=== PATIENT | male | born 1990 | race Two or more races ===

== ENCOUNTER 2017-01-22 08:37 | Emergency (ER) | payer SELFPAY ==
[2017-01-22] VITALS (12 sets, daily range): BP systolic 100–112; BP diastolic 60–83
[~2017-01-22] VITALS: Ht 162.6 cm; Wt 56.7 kg
[2017-01-22] MEDS ORDERED: Ketorolac 30mg Inj IV ONE (09:15)
[2017-01-22] MEDS ORDERED: Diazepam 10mg/2ml Inj IV ONE (09:15)
[2017-01-22] MEDS ORDERED: Lidocaine 1% Plain 30 ml INJ ONE ×2 (09:29→09:30)
--- NOTE | 2017-01-22 09:35 | Diagnostic Imaging Report ---
Indication: Right shoulder pain Technique: XRAY SHOULDER MIN 3V RIGHT Comparison: None Findings: There is the right anterior shoulder dislocation with suspected Hill-Sachs impaction of the humeral head. Bone mineralization is normal. Impression: Right anterior shoulder dislocation.
[2017-01-22] MEDS ORDERED: Propofol 10mg/ml 20ml IV ONE (10:00)
[2017-01-22] MEDS ORDERED: ACETAMINOPHEN-1 EAC1 ORAL (12:30)
[2017-01-22] MEDS ORDERED: IBUPROFEN600 MG ORAL (12:30)
--- NOTE | 2017-01-22 15:15 | Emergency Room Report ---
History of Present Illness General Chief Complaint: Upper Extremity Injury Source: Patient Present Illness HPI 26-year-old male presents ED complain of right shoulder pain. States he slipped and fell the bathroom this morning. The nose right shoulder. Denies hitting his head or LOC. Notes pain and deformity to right shoulder. /. Throbbing. Nonradiating. Unable to raise shoulder. History of dislocations in the past. No other aggravating or relieving factors. Denies any other associated symptoms Allergies: Coded Allergies: No Known Allergies (Unverified , 01/22/17) Patient History Past Medical History: none Past Surgical History: none Pertinent Family History: none Social History: Denies: alcohol use, drug use, smoking Immunizations: UTD Reviewed Nursing Documentation: PMH: Agreed, PSxH: Agreed Nursing Documentation-PMH Past Medical History: No Stated History Review of Systems All Other Systems: negative except mentioned in HPI Physical Exam Vital Signs Date Time Temp Pulse Resp B/P Pulse Ox O2 Delivery O2 Flow Rate FiO2 01/22/17 08:51 98.2 96 16 103/71 100 Room Air 01/22/17 09:35 3.0 Sp02 EP Interpretation: reviewed, normal General Appearance: no apparent distress, alert, GCS 15, non-toxic Head: normocephalic Eyes: bilateral eye PERRL, bilateral eye normal inspection ENT: normal ENT inspection Neck: normal inspection Respiratory: normal inspection Cardiovascular #1: normal inspection Gastrointestinal: normal inspection Rectal: deferred Genitourinary: no CVA tenderness Musculoskeletal: other - deformity R shoulder Neurologic: alert, oriented x3, responsive, motor strength/tone normal, sensory intact, speech normal Psychiatric: normal inspection Skin: normal inspection Lymphatic: normal inspection Procedures Splinting Splinting : Consent: Verbal Splint: shoulder immobilizer Pre-Proc Neuro Vasc Exam: normal Post-Proc Neuro Vasc Exam: normal Patient Tolerated: Well Complications: None Joint Reduction Joint Reduction : Consent: Verbal Joint Reduction Site: shoulder (R) Procedural Sedation: Yes Reduction Attempts: One Pre-Procedure NV Exam: Yes Post-Procedure NV Exam: Yes Post Joint Reduction Film: joint reduced Patient Tolerated: Well Complications: None Procedural Sedation Consent: Written Pre-Sedation Assessment: Eval. Immed. Prior to Sed, Pre-proc Edu. done, Plan for Sedation Discuss Airway Assessment (Malampati): I Heart: normal Lungs: normal Abdomen: normal Extremities: normal Procedures/Plans: Closed Reduction Plan for Moderate Sedation: Propofol ASA Score: I Start Time: 10:32 End Time: 10:41 Total Time: 0009 Communication: No Apparent Limitation Mental Status: Awake Respiration: Unlabored Skin Condition: WNL Abdomen: WNL Nausea: NO Vomiting: NO Medical Decision Making Diagnostic Impression: Primary Impression: Shoulder dislocation Qualified Codes: S43.004A - Unspecified dislocation of right shoulder joint, initial encounter ER Course Hospital Course 26-year-old male presents to ED complaining of R shoulder pain Differential diagnoses include: Fracture, dislocation, sprain, contusion Clinical course Patient placed on stretcher. After initial history and physical I ordered pain medications and x-rays of right shoulder Right shoulder x-ray shows dislocation Procedural sedation performed using propofol. Respiratory therapist at bedside. Patient stable vitals on cardiac rn. Shoulder reduced without complication. Placed in shoulder sling. Repeat shoulder x-ray shows adequate reduction. Patient states she feels better. Diagnosis - shoulder dislocation Stable and discharged to home with prescription for Motrin, Tylenol #3. Followup with PMD. Return to ED if symptoms recur or worsen Other X-Ray Diagnostic Results Other X-Ray Diagnostic Results : X-Ray Ordered: R shoulder EP Interpretation: No Findings: no fractures, no soft tissue swelling, other - R shoulder dislocation Number of Views: 3 Last Vital Signs Date Time Temp Pulse Resp B/P Pulse Ox O2 Delivery O2 Flow Rate FiO2 01/22/17 12:48 98.0 80 15 112/79 100 Room Air 2.0 Status: improved Disposition: HOME, SELF-CARE Condition: Stable Scripts Acetaminophen With Codeine (T#3) (TYLENOL #3 TAB*) Y Tab 1 TAB ORAL Q8H Y for For Pain, #20 TAB Prov: MELANIE GARDUNO M.D. 01/22/17 Ibuprofen* (MOTRIN*) 600 Mg Tablet 600 MG ORAL Q8H Y for For Pain, #30 TAB 0 Refills Prov: MELANIE GARDUNO M.D. 01/22/17 Patient Instructions: Shoulder Dislocation, [id number] MELANIE GARDUNO M.D. Jan 22, 2017 15:15
--- NOTE | 2017-01-23 08:45 | Diagnostic Imaging Report ---
Indication: Status post reduction right shoulder dislocation Technique: XRAY SHOULDER 1-2V RIGHT Comparison: Examination from earlier the same day at 0906 hrs. Findings: Examination is limited by a single view. There has been gross interval reduction of the anterior shoulder dislocation. Hill-Sachs impaction of the humeral head is present. Impression: Gross interval reduction of anterior shoulder dislocation. Hill-Sachs impaction of the humeral head.
== END 2017-01-22 12:50 | disposition home or self-care (01) ==
LOC: EMR 09:46
DX: S43.004A Unspecified dislocation of right shoulder joint, initial encounter (principal); W01.0XXA Fall on same level from slipping, tripping and stumbling without subsequent striking against object, initial encounter; Y92.012 Bathroom of single-family (private) house as the place of occurrence of the external cause
CPT/HCPCS: 23655; 29240; 73020; 73030; 96374; 96375; 99284; J1885; J2001; J2704; J3360